=== PATIENT | female | born 1990 | race Caucasian/White ===

== ENCOUNTER 2017-06-10 09:59 | Emergency (ER) | payer MEDICAID ==
[~2017-06-10] VITALS: Ht 157.5 cm; Wt 80.0 kg
[~2017-06-10 09:59] MED LIST: PREN1TAB62 PO
[2017-06-10 10:04] VITALS: Ht 157.5 cm; Wt 80.0 kg
[2017-06-10] MEDS ORDERED: KETOROLAC 30 MG INJ IM STA (11:36)
[2017-06-10] MEDS ORDERED: IBUP-1542 PO (12:42)
--- NOTE | 2017-06-10 17:59 | ERD ---
ER Documentation Chief Complaint Date/Time DATE: 06/10/17 TIME: 17:51 Chief Complaint neck pain, breast pain/burning, haNDS TINGLING X 3 DAYS HPI Patient is a 27-year-old female who presents today for concerns of neck pain, bilateral breast pain and hand tingling. Patient states her symptoms started 3 days ago. Patient states she has pain on the lateral aspects of her chest wall and her lateral rib cages. Patient describes the pain to be burning in nature. Patient states she is also palpated "small bumps" in her bilateral breasts. Patient denies any nipple discharge or bleeding. Patient states her last menstrual period was 1 month ago and her next period should be seen. Patient denies any new medication for symptoms. Patient does report neck pain. Patient denies any back pain, saddle anesthesia, urinary incontinence or stool incontinence. Patient also reports tingling in her bilateral hands which started yesterday. Patient denies any chest pain, shortness breath, nausea, vomiting, headache, blurry vision, unilateral weakness, slurred speech or loss of consciousness. Patient does admit to OCP use however she denies any unilateral leg swelling, recent travel, recent surgeries, history of DVT/PE. ROS All systems reviewed and are negative except as per history of present illness. Medications Home Meds Active Scripts Ibuprofen* (Motrin*) 600 Mg Tab, 600 MG PO Q6, #20 TAB Prov:PAULA CARTER PA-C 06/10/17 Reported Medications Vit-Iron Fumarate-FA ( Vitamin Tablet) 1 Each Tablet, 1 TAB PO DAILY, TAB 05/27/16 Allergies Allergies: Coded Allergies: No Known Drug Allergy (Verified Allergy, Mild, 05/27/16) PMhx/Soc History of Surgery: No Anesthesia Reaction: No Hx Neurological Disorder: No Hx Respiratory Disorders: No Hx Cardiac Disorders: No Hx Psychiatric Problems: No Hx Miscellaneous Medical Probl: No Hx Alcohol Use: No Hx Substance Use: No Hx Tobacco Use: No Smoking Status: Never smoker Physical Exam Vitals Vital Signs Date Time Temp Pulse Resp B/P Pulse Ox O2 Delivery O2 Flow Rate FiO2 06/10/17 10:04 98.1 90 18 126/77 99 Physical Exam GENERAL: Well-developed, well-nourished female. Appears in no acute distress. Speaking in full sentences HEAD: Normocephalic, atraumatic. No facial asymmetry. EYES: Pupils are equally reactive bilaterally. EOMs grossly intact. No conjunctival erythema. ENT: Moist mucous membranes. No uvula deviation. No kissing tonsils. NECK: Supple. No meningismus. Normal range of motion of the neck. Tender to palpation of bilateral trapezius muscles. CHEST WALL: Tender to palpation of bilateral lateral chest fleming. Pain is reproducible. BREAST: Bilateral breast noted to have fibrocystic changes. No nipple discharge or bleeding. No large palpable masses noted. No lymphadenopathy in bilateral axillas noted. LUNG: Clear to auscultation bilaterally. No rhonchi, wheezing, rales or coarse breath sounds. HEART: Regular rate and rhythm. No murmurs, rubs or gallops. BACK: No midline tenderness. Tender to palpation of bilateral lumbar paraspinals muscles. EXTREMITIES: Equal pulses bilaterally. No peripheral clubbing, cyanosis or edema. No unilateral leg swelling. Normal range of motion of bilateral upper extremities. 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 Neurovascularly intact bilaterally, able to give thumbs up, cross digits 2 and 3, pinky to thumb opposition. 2+ RP pulses. Normal cap refill. NEUROLOGIC: Alert and oriented. Moving all four extremities without any difficulty. Normal speech. Steady gait. SKIN: Normal color. Warm and dry. No rashes or lesions. Results 24 hrs Current Medications Medications (Trade) Dose Ordered Sig/Joyce Route PRN Reason Start Time Stop Time Status Last Admin Dose Admin Ketorolac Tromethamine (Toradol) 30 mg ONCE STAT IM 06/10/17 11:36 06/10/17 11:37 DC 06/10/17 12:26 Procedures/MDM MEDICAL DECISION MAKING: Patient is a 27-year-old female who presents ED for concerns of neck pain, back pain, bilateral breast pain and hand tingling.. Vital signs were reviewed. Patient is afebrile. Patient was not hypoxic. Patient was hemodynamically stable. Breast exam revealed findings consistent with fibrocystic changes. Patient also stated that her menstrual period was approximately 1 month ago and she is due for her next period soon. Patient's pain was reproducible. Patient was given Toradol here in the emergency department did report improvement in pain. At this time, the patient's presentation is most consistent with musculoskeletal pain and fibrocystic breast changes. Low suspicion for ACS, pericarditis, PE, mastitis, pneumothorax, CVA, . Discussed the case with my supervising physician Dr. Hassan, who agreed that the patient was stable for outpatient management and discharge. PRESCRIPTION: Ibuprofen DISCHARGE: At this time, patient is stable for discharge and outpatient management. I have instructed the patient to follow-up with his/her primary care physician in 1-2 days. I have discussed with the patient the possibility of needing to see a specialist for further workup and imaging studies if symptoms persist. I have instructed the patient to promptly return to the ER for any new or worsening symptoms including increased pain, fever, nausea, vomiting, weakness or LOC. The patient and/or family expressed understanding of and agreement with this plan. All questions were answered. Home care instructions were provided. Disclaimer: Inadvertent spelling and grammatical errors are likely due to EHR/ dictation software use and do not reflect on the overall quality of patient care. Also, please note that the electronic time recorded on this note does not necessarily reflect the actual time of the patient encounter. Departure Diagnosis: Primary Impression: Fibrocystic breast changes Laterality: unspecified laterality Qualified Code: N60.19 - Fibrocystic breast changes, unspecified laterality Additional Impression: Musculoskeletal pain Condition: Stable Patient Instructions: What Are Fibrocystic Breasts? Referrals: COMMUNITY CLINICS YOU HAVE RECEIVED A MEDICAL SCREENING EXAM AND THE RESULTS INDICATE THAT YOU DO NOT HAVE A CONDITION THAT REQUIRES URGENT TREATMENT IN THE EMERGENCY DEPARTMENT. FURTHER EVALUATION AND TREATMENT OF YOUR CONDITION CAN WAIT UNTIL YOU ARE SEEN IN YOUR DOCTORS OFFICE WITHIN THE NEXT 1-2 DAYS. IT IS YOUR RESPONSIBILITY TO MAKE AN APPOINTMENT FOR FOLOW-UP CARE. IF YOU HAVE A PRIMARY DOCTOR --you should call your primary doctor and schedule an appointment IF YOU DO NOT HAVE A PRIMARY DOCTOR YOU CAN CALL OUR PHYSICIAN REFERRAL HOTLINE AT IF YOU CAN NOT AFFORD TO SEE A PHYSICIAN YOU CAN CHOSE FROM THE FOLLOWING [facility] CLINICS [facility] [address]. [facility] [address] [facility]. [facility] [address] [facility] [address] [facility] [address] [facility] [address] [facility]. [facility] YOU HAVE RECEIVED A MEDICAL SCREENING EXAM AND THE RESULTS INDICATE THAT YOU DO NOT HAVE A CONDITION THAT REQUIRES URGENT TREATMENT IN THE EMERGENCY DEPARTMENT. FURTHER EVALUATION AND TREATMENT OF YOUR CONDITION CAN WAIT UNTIL YOU ARE SEEN IN YOUR DOCTORS OFFICE WITHIN THE NEXT 1-2 DAYS. IT IS YOUR RESPONSIBILITY TO MAKE AN APPOINTMENT FOR FOLOW-UP CARE. IF YOU HAVE A PRIMARY DOCTOR --you should call your primary doctor and schedule and appointment IF YOU DO NOT HAVE A PRIMARY DOCTOR YOU CAN CALL OUR PHYSICIAN REFERRAL HOTLINE AT . IF YOU CAN NOT AFFORD TO SEE A PHYSICIAN YOU CAN CHOSE FROM THE FOLLOWING [facility] INSTITUTIONS: [facility] [address] [place] [address] [facility] [address] [place] [address] [facility] [address] [place] [address] [employer] [place] [address] [facility] [address] [place] [address] OFFICE FAX , [facility] [address] [place], [place] [id number] [facility] [address] [place] [address] [address] [address] [facility], [address], [facility] [address] [address] [place] [address] [facility] [address] [place] [address] [facility] [address] - DESTINI [address]MER [address], [facility] [address] [address], [place] [address] [facility]. [address], [place] [address] [address] [address] [place] [address] Additional Instructions: Call your primary care doctor TOMORROW for an appointment during the next 1-2 days.See the doctor sooner or return here if your condition worsens before your appointment time. PAULA CARTER PA-C Jun 10, 2017 17:59
== END 2017-06-10 13:05 | disposition home or self-care (01) ==
LOC: FTE 09:59
DX: N60.19 Diffuse cystic mastopathy of unspecified breast (principal)
CPT/HCPCS: 96372; J1885; Z7502

== ENCOUNTER 2018-04-15 21:40 | Emergency (ER) | END 2018-04-16 03:08 | disposition home or self-care (01) ==

== ENCOUNTER 2018-10-11 19:34 | Emergency (ER) | payer SELFPAY ==
[~2018-10-11 19:34] MED LIST changes: +ACET500C5 PO; +DIC20 PO; +IBUP-1542 PO; +ONDA4TAB14 PO
== END 2018-10-11 20:00 | disposition left against medical advice (07) ==
LOC: E/R 19:34
DX: Z53.21 Procedure and treatment not carried out due to patient leaving prior to being seen by health care provider (principal)